=== PATIENT | male | born 1960 | race Caucasian/White ===

== ENCOUNTER 2020-11-04 11:42 | Emergency (ER) | payer OTHER ==
[~2020-11-04] VITALS: Ht 185.4 cm; Wt 82.1 kg
[2020-11-04 13:32] LABS: BASOPHILS % (AUTO) 1 % (0-1); EOSINOPHILS % (AUTO) 1 % (1-7); LYMPHOCYTES % (AUTO) 21 % (22-44); MEAN CORPUSCULAR HGB CONC 33.9 g/dL (33.2-36.2); MONOCYTES % (AUTO) 7 % (2-9); NEUTROPHILS % (AUTO) 70 % (42-75); PLATELET COUNT 213 x10^3/uL (130-400); RED BLOOD COUNT 4.48 x10^6/uL (4.38-5.82); RED CELL DISTRIBUTION WIDTH 12.7 % (9.4-14.8)
--- NOTE | 2020-11-04 14:05 | NUR ---
PATIENT HAD A NOSE BLEED 3 DAYS. PATIENT IS NOT ON BLOOD THINNERS. HE IS NOT BLEEDING AT THIS TIME BUT STATES IN PAST THREE DAYS HE BLEEDS A LOT AND FOR A LONG TIME.
[2020-11-04 15:02] VITALS: BP 132/78
== END 2020-11-04 15:35 | disposition home or self-care (01) ==
LOC: ED 15:28
DX: R04.0 Epistaxis (principal)
CPT/HCPCS: 36415; 85025; 99283